=== PATIENT | female | born 1975 ===

== ENCOUNTER 2023-08-06 13:15 | Day surgery (SDC) | payer OTHER ==
[~2023-08-06 13:15] MED LIST: ACID REDUCER20 M1 PO; ATORVASTATIN CA10 MG PO; ZESTRIL20 MG PO
[2023-08-06] MEDS ORDERED: CEFAZOLIN SODIUM 1,000 MG VIAL ONE (14:23)
[2023-08-06] MEDS ORDERED: POVIDONE-IODINE 118 ML BOTT TOP ONE ×2 (16:10→17:30)
[2023-08-06] MEDS ORDERED: CEFAZOLIN SODIUM 1,000 MG VIAL IV ONE (17:30)
[2023-08-06] MEDS ORDERED: MORPHINE SULFATE 4 MG/ML VIAL IV PRN (17:45)
[2023-08-06] MEDS ORDERED: PROMETHAZINE HCL 50 MG/ML AMPUL IM ONE (17:45)
== END 2023-08-06 23:25 | disposition home or self-care (01) ==
LOC: CIR.AMB 13:15
PROVIDERS: ATTEND Obstetrics & Gynecology Obstetrics
DX: N93.9 Abnormal uterine and vaginal bleeding, unspecified (principal); N72 Inflammatory disease of cervix uteri; E78.5 Hyperlipidemia, unspecified; I10 Essential (primary) hypertension; Z20.822 Contact with and (suspected) exposure to COVID-19